=== PATIENT | male | born 1945 | race Caucasian/White ===

== ENCOUNTER 2017-05-26 11:51 | Outpatient (CLI) | payer MEDICARE, OTHER ==
[~2017-05-26] VITALS: Ht 180.3 cm; Wt 48.1 kg
[2017-05-26 14:56] VITALS: BP 121/68
[2017-05-26] MEDS ORDERED: METFORMIN HCL500 M1 ORAL (15:07)
[2017-05-26] MEDS ORDERED: LIBRAX1 EA ORAL (15:07)
[2017-05-26] MEDS ORDERED: KLONOPIN0.5 MG ORAL (15:07)
[2017-05-26] MEDS ORDERED: NAMENDA10 MG ORAL (15:07)
--- NOTE | 2017-05-26 15:31 | GI Initial Consult Note ---
DialloRomelia Osei N.PLu 05/26/17 1531: History of Present Illness General Date patient seen: May 26, 2017 Time patient seen: 11:00 Referring physician: TIP Reason for Consultation: Abdominal pain Present Illness HPI 71 year old male presents today with c/o of abdominal pain with possible colitis. States he had abdominal pain for the past 30 years, last colonoscopy 40 years ago. Current symptoms include diarrhea vs constipation and abdominal bloating. Denies any unintentional weight loss or changes in dietary habits. No signs of abuse or neglect. Patient is not fall risk. Home Meds Reported Medications Clonazepam* (KLONOPIN*) 0.5 Mg Tablet, ORAL Q6H, #15 TAB 0 Refills 05/26/17 Chlordiazepoxide/Clidinium (Librax Capsule) 1 Each Capsule, 1 EA ORAL, CAP 05/26/17 Memantine Hcl* (NAMENDA*) 10 Mg Tablet, ORAL DAILY, TAB 05/26/17 Metformin Hcl* (METFORMIN HCL*) 500 Mg Tablet, ORAL TWICE A DAY, TAB 05/26/17 Med list reviewed/reconciled: Yes Allergies: Coded Allergies: No Known Allergies (Unverified , 05/26/17) Patient History History Provided By: Patient, Medical Record PMH Narrative DM Anxiety IBS Past Surgical History: Appendectomy Social History: Denies: smoking, alcohol use, drug use, other Review of Systems All Other Systems: negative except mentioned in HPI Physical Exam Vital Signs Date Time Temp Pulse Resp B/P (MAP) Pulse Ox O2 Delivery O2 Flow Rate FiO2 05/26/17 14:56 78 16 121/68 97 Sp02 EP Interpretation: reviewed, normal Labs Laboratory Tests Test 05/26/17 12:30 Helicobacter pylori Breath Test Pending General Appearance: well appearing, no apparent distress, alert Head: normocephalic EENT: PERRL/EOMI, normal ENT inspection Neck: supple Respiratory: normal breath sounds, no respiratory distress Cardiovascular: normal rate Gastrointestinal: normal inspection, non tender, soft, normal bowel sounds, non -distended Rectal: deferred Genitourinary: deferred Musculoskeletal: normal inspection, back normal Neurologic: normal inspection, alert, oriented x3, responsive Psychiatric: normal inspection, judgement/insight normal, memory normal Skin: normal inspection, normal color, no rash, warm/dry, palpation normal, well hydrated Lymphatic: normal inspection, no adenopathy GI: Plan Problems: (1) IBS (irritable bowel syndrome) (2) Diabetes mellitus (3) Anxiety Plan refused colonoscopy ordered stool for cancer >> colovantage ordered breath test rx Xifaxin Viberzi trial RTC after procedure/labs resulted Seen with Dr. Reyes. Thank you for this patient referral. MARIN REYES 05/27/17 1327: History of Present Illness Present Illness Home Meds Reported Medications Clonazepam* (KLONOPIN*) 0.5 Mg Tablet, ORAL Q6H, #15 TAB 0 Refills 05/26/17 Chlordiazepoxide/Clidinium (Librax Capsule) 1 Each Capsule, 1 EA ORAL, CAP 05/26/17 Memantine Hcl* (NAMENDA*) 10 Mg Tablet, ORAL DAILY, TAB 05/26/17 Metformin Hcl* (METFORMIN HCL*) 500 Mg Tablet, ORAL TWICE A DAY, TAB 05/26/17 Allergies: Coded Allergies: No Known Allergies (Unverified , 05/26/17) GI: Plan Plan The patient was seen and examined at bedside and all new and available data was reviewed in the patients chart. I agree with the above findings, impression and plan. (Patient seen earlier today. Signature stamp does not reflect patient encounter time.). - MD Imani Royal Anh Osei Le May 26, 2017 15:31 MARIN REYES May 27, 2017 13:27
== END 2017-05-26 12:23 | disposition home or self-care (01) ==
LOC: PAN 11:51
DX: K58.9 Irritable bowel syndrome, unspecified (principal); E11.9 Type 2 diabetes mellitus without complications; F41.9 Anxiety disorder, unspecified; Z90.89 Acquired absence of other organs
CPT/HCPCS: 83013; G0463; 99202

== ENCOUNTER 2017-07-23 14:02 | Outpatient (CLI) | payer MEDICARE, OTHER ==
[2017-07-23 13:00] VITALS: BP 120/80
[~2017-07-23 14:02] MED LIST: KLONOPIN0.5 MG ORAL; LIBRAX1 EA ORAL; METFORMIN HCL500 M1 ORAL; NAMENDA10 MG ORAL
--- NOTE | 2017-07-23 14:53 | GI Progress Note ---
Assessment/Plan Problems: (1) H. pylori infection ICD Codes: A04.8 - Other specified bacterial intestinal infections SNOMED: 787854795 (2) IBS (irritable bowel syndrome) ICD Codes: K58.9 - Irritable bowel syndrome without diarrhea SNOMED: 99240489 Status: stable Status Narrative Seen with Dr. Dacosta. Assessment/Plan refused colonoscopy again, cologuard stool test H. Pylori Treatment >> - Amoxicillin 1g BID - Biaxin 500mb BID - Omeprazole 40mg x 2 weeks followed by Omeprazole 40mg PO daily x 6 weeks RTC x 3 month for repeat Breath Test referred to surgery for hernia evaluation Subjective Subjective occasional abdominal pain Objective T 97.8 BP 120/80 P 80 98 RA General Appearance: WD/WN, no apparent distress, alert Cardiovascular: normal rate Respiratory/Chest: normal breath sounds, no respiratory distress Abdominal Exam: normal bowel sounds, non tender, soft Extremities: normal range of motion, non-tender Romelia Diallo N.P. Jul 23, 2017 14:53
== END 2017-07-23 14:35 | disposition home or self-care (01) ==
LOC: PAN 14:02
DX: K58.9 Irritable bowel syndrome, unspecified (principal); A04.8 Other specified bacterial intestinal infections
CPT/HCPCS: 99212